=== PATIENT | male | born 1960 | race Caucasian/White ===

== ENCOUNTER → 2021-01-04 09:30 | Outpatient (BNVA) | payer OTHER, SELFPAY | PROVIDERS: PCP Internal Medicine; Visit Provider Urology ==

== ENCOUNTER 2021-07-26 12:30 | Outpatient (REF) | payer OTHER, SELFPAY ==
[2021-07-26 14:39] LABS: Appearance Urine CLEAR; Color Urine STRAW; Glucose Urine UA NEG (NEG); Leukocyte Esterase Urine NEG (NEG); Nitrite Urine NEG (NEG); PH 6.5 (5.0-8.0); Specific Gravity - Urine <= 1.005 (1.005-1.025); Urine Blood NEG (NEG); Urine Ketones NEG (NEG); Urine Protein NEG (NEG-TRACE)
[2021-07-26 14:53] LABS: RBC Urine 0 /HPF (0); WBC Urine 0 /HPF (0-4)
== END 2021-07-26 12:31 | disposition home or self-care (01) ==
LOC: HO.LAB 12:30
PROVIDERS: Absent Provider Internal Medicine; PCP Internal Medicine; Visit Provider Urology
DX: N40.0 Benign prostatic hyperplasia without lower urinary tract symptoms (principal)
CPT/HCPCS: 81001; 87086

== ENCOUNTER → 2021-08-01 12:47 | Outpatient (BNVA) | payer OTHER, SELFPAY | PROVIDERS: PCP Internal Medicine; Visit Provider Urology | DX: N40.0 Benign prostatic hyperplasia without lower urinary tract symptoms (principal); N52.9 Male erectile dysfunction, unspecified | CPT/HCPCS: 51798 ==

== ENCOUNTER 2021-08-13 11:44 | Outpatient (REF) | payer OTHER, SELFPAY ==
[2021-08-13 13:57] LABS: Appearance Urine CLEAR; Color Urine YELLOW; Glucose Urine UA NEG (NEG); Leukocyte Esterase Urine NEG (NEG); Nitrite Urine NEG (NEG); Specific Gravity - Urine <= 1.005 (1.005-1.025); Urine Blood NEG (NEG); Urine Ketones NEG (NEG); Urine Protein NEG (NEG-TRACE)
[2021-08-13 14:11] LABS: RBC Urine 0 /HPF (0); WBC Urine 0 /HPF (0-4)
== END 2021-08-13 11:45 | disposition home or self-care (01) ==
LOC: HO.LAB 11:44
PROVIDERS: PCP Internal Medicine; Visit Provider Urology
DX: N40.0 Benign prostatic hyperplasia without lower urinary tract symptoms (principal)
CPT/HCPCS: 81001; 87086

== ENCOUNTER 2021-10-17 14:13 | Outpatient (REF) | payer BC, SELFPAY ==
[2021-10-17 15:22] LABS: PSA,Total (Free>4and<10) 4.27 ng/mL (0.00-4.00)
[2021-10-18 11:32] LABS: Free Prostate Spec Ag 0.2 ng/mL; Percent Free Prostate Spec Ag 5 % (calc) (>25); Prostate Specific Ag Total 3.7 ng/mL (< OR = 4.0)
== END 2021-10-17 14:14 | disposition home or self-care (01) ==
LOC: HO.LAB 14:13
PROVIDERS: PCP Internal Medicine; Visit Provider Urology
DX: N40.1 Benign prostatic hyperplasia with lower urinary tract symptoms (principal); N13.8 Other obstructive and reflux uropathy; Z12.5 Encounter for screening for malignant neoplasm of prostate
CPT/HCPCS: 36415; 84153; 84154

== ENCOUNTER → 2021-11-01 11:31 | Outpatient (BNVA) | payer BC, SELFPAY | PROVIDERS: PCP Internal Medicine; Visit Provider Urology ==

== ENCOUNTER 2021-12-16 08:17 | Outpatient (REF) | payer BC, SELFPAY ==
[2021-12-16 09:50] LABS: Prostate Specific Antigen 2.39 ng/mL (<0.05-4.0)
== END 2021-12-16 08:18 | disposition home or self-care (01) ==
LOC: HO.LAB 08:17
PROVIDERS: PCP Internal Medicine; Visit Provider Urology
DX: Z12.5 Encounter for screening for malignant neoplasm of prostate (principal); N40.1 Benign prostatic hyperplasia with lower urinary tract symptoms; N13.8 Other obstructive and reflux uropathy
CPT/HCPCS: 36415; 84153

== ENCOUNTER 2021-12-24 11:53 | Outpatient (AMB) | payer BC, SELFPAY ==
--- NOTE | 2021-12-24 11:53 | A.OFFVIS_ITS ---
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 He is a patient of Dr. Camp. He seen for the following urologic conditions. - erectile dysfunction - lower urinary tract symptoms - UTI Telemedicine evaluation 15 minute consultation Doximity nghia Video attempted PSA stabilized 2.4 ExoUrine DNA risk 40 (baseline 20) Erectile dysfunction: Good response to on demand sildenafil He presents today for for continued evaluation and management of erectile dysfunction. Symptoms have been present for/since years ago Prior therapies include oral medications. At this time he experiences erections are full, rigid and adequate for vaginal penetration, that last until ejaculation, SABINE 17-21 Mild ED. Nocturnal erections do occur. Currently they are in a stable relationship. Associated problems hypertension No diabetes No dyslipidemia No depression No stress No decreased libido No pelvic surgery No Overall he is satisfied with the current management. Lower Urinary Tract Symptoms: Stable with Flomax Maintain current medication Current visit is for further evaluation of, predominate obstructive symptoms. Current treatment includes medication, alpha chuck. Prostate Symptom Score 01/01 , Mild (0-8), Bother 2. Symptoms include for day 01/01 , incomplete emptying, weak stream, and are stable. PSA 11/29 0.7, 11/05 3.7 5%, 01/03 2.4 Prostate volume 30-50gm. Testing at next visit will include bladder scan [facility] Medical History BPH (benign prostatic hyperplasia) Erectile dysfunction Surgical History History of hernia repair Review of Systems Const All systems reviewed & are unremarkable except as noted in HPI and below Reports no additional complaints Resp Reports no additional complaints GI Reports no additional complaints Reports as per HPI Musc Reports no additional complaints Physical Exam Telemedicine evaluation Appropriate responses Regular breathing rate and rhythm HEENT Head: Yes normal to inspection Ears: hearing grossly normal bilaterally Eyes General: appearance normal, both eyes and all related structures Neck Neck: Yes normal visual inspection Chest Chest palpation & inspection: normal inspection of the chest Resp Effort & Inspection: normal respiratory effort and able to speak in complete s entences Assessment & Plan Assessment & Plan (1) Urinary urgency: Code(s): R39.15 - Urgency of urination (2) BPH (benign prostatic hyperplasia): Code(s): N40.0 - Benign prostatic hyperplasia without lower urinary tract symptoms (3) Erectile dysfunction: Code(s): N52.9 - Male erectile dysfunction, unspecified (4) Elevated PSA: Code(s): R97.20 - Elevated prostate specific antigen [PSA] Plan Six month follow-up PSA Needs 30 days tamsulosin - [facility] in [place] called and prescription left Orders: Orders Prostate Specific Antigen 6 Months R97.20 - Elevated prostate specific antigen [PSA] Medications: New oxybutynin chloride 5 mg PO Q8H PRN 30 tabs 0RF bladder spasms 30 days R39.15 - Urgency of urination, R33.9 - Retention of urine, unspecified Patient Instructions: The patient had an opportunity to ask questions regarding treatment plan. All questions were answered. Imaging studies, laboratory studies and physical exam results were discussed and reviewed in detail. No major barriers to understanding were identified. The patient expressed understanding and agreement with the above treatment plan. The patient is aware they should contact our office by phone for worsening of their current condition or the appearance of new symptoms. Compliance is encoura ged with any medications and followup testing that is ordered. It is a privilege to be allowed the opportunity to participate in the urologic care of your patient. If you have any questions or concerns regarding treatment for the above conditions please do not hesitate to contact me. The office telephone contact is [phone]. This note is constructed using voice recognition software. While every effort has been made to ensure accuracy office machine punch operator errors may have been included. Yours sincerely, Dr Jamey Daly MD, [facility] Telehealth Telehealth Location of provider rendering services: practice address Location of patient: address on file Patient Identification confirmed using: Name, : Yes Telehealth method: voice only Patient verbally consented to treatment: Yes Patient verbally consented to billing insurance company: Yes Patient informed of any privacy concerns related to visit: Yes Coding Level of Care Code Est Pt Level 4 (75382) Diagnoses Urinary urgency R39.15 BPH (benign prostatic hyperplasia) N40.0 Erectile dysfunction N52.9 Elevated PSA R97.20
== END 2021-12-24 15:23 | disposition home or self-care (01) ==
LOC: HO.HUSH 11:53
PROVIDERS: PCP Internal Medicine; Visit Provider Urology
DX: R39.15 Urgency of urination (principal); N40.0 Benign prostatic hyperplasia without lower urinary tract symptoms; N52.9 Male erectile dysfunction, unspecified; R97.20 Elevated prostate specific antigen [PSA]
CPT/HCPCS: 99499

== ENCOUNTER → 2021-12-24 11:53 | Outpatient (BNVA) | payer BC, SELFPAY | PROVIDERS: PCP Internal Medicine; Visit Provider Urology | DX: Z13.89 Encounter for screening for other disorder (principal) ==

== ENCOUNTER 2022-01-30 14:33 | Outpatient (REF) | payer BC, SELFPAY ==
[2022-01-30 15:51] LABS: PSA,Total (Free>4and<10) 2.46 ng/mL (0.00-4.00)
== END 2022-01-30 14:34 | disposition home or self-care (01) ==
LOC: HO.LAB 14:33
PROVIDERS: PCP Internal Medicine; Visit Provider Urology
DX: Z12.5 Encounter for screening for malignant neoplasm of prostate (principal); N13.8 Other obstructive and reflux uropathy; N40.1 Benign prostatic hyperplasia with lower urinary tract symptoms
CPT/HCPCS: 36415; 84153